=== PATIENT | male | born 1950 | race Caucasian/White ===

== ENCOUNTER → 2017-09-10 | Outpatient (CLI) | payer MEDICARE ==
[~2017-09-10] MED LIST: ACET325 PO; ALBU90OI61 INH; ASPI325 PO; ASPI81EC; ATEN25 PO; AZIT250 PO; Amiodarone HCl200 MG PO; BUDE6HFA INH; CARV6.25 PO; CHOL10002 PO; CLOP75 PO; CYCL10 PO; ELIQUIS5 MG PO; ESBRIET267 MG PO; GABA300 PO; GUAI600T33 PO; HYDCHL12.5 PO; HYSINGLA ER80 MG PO; Isosorbide Dini30 MG PO; LEVO750 PO; LISI20 PO; LIVALO2 MG PO; NAPR550 PO; NITR.4SL INH; NITR.4SL SL; NITROQUICK INH; Norco 10-325 T1 EACH PO; Norco 5-325 Ta1 EACH PO; OXYACE5T PO; OXYACE7.5T; OXYC5 PO; OXYGEN; PRAV20 PO; Pepcid20 MG PO; Pravastatin Sod40 MG PO; ROSU10TA PO; RXCYCL10 PO; RXNAPNA550 PO; Ventolin/Prove6.7 GM INH; ZOHYDRO ER10 M1 PO; [UNRECOGNIZED DRUG - REMARK]
[2017-09-10 15:02] LABS: Anion Gap 8 mmol/L (6-16); Blood Urea Nitrogen 24 mg/dL (8-24); CO2, Blood 18 mmol/L (21-32); Calcium, Blood 8.7 mg/dL (8.5-10.1); Chloride, Blood 109 mmol/L (98-108); Glomerular Filtration Rate >60 (60-); Glucose, Blood 128 mg/dL (70-99); Potassium, Blood 4.5 mmol/L (3.5-5.5); Sodium, Blood 135 mmol/L (136-145)
== END | disposition home or self-care (01) ==
LOC: LAB SHORT 10:15
PROVIDERS: Family Medicine
DX: I25.10 Atherosclerotic heart disease of native coronary artery without angina pectoris (principal); J44.9 Chronic obstructive pulmonary disease, unspecified; R06.02 Shortness of breath; Z95.1 Presence of aortocoronary bypass graft
CPT/HCPCS: 80048

== ENCOUNTER 2017-09-25 09:24 | Day surgery (SDC) | payer MEDICARE | END 2017-09-25 22:49 | disposition home or self-care (01) | LOC: ORSCMMR 09:24 → ORD 09:24 → CT 09:24 → ORSCMMR 09:25 → ORD 09:30 → CT 10:00 → ORSCMMR 22:49 → ORD 22:49 | DX: I25.10 Atherosclerotic heart disease of native coronary artery without angina pectoris (principal); I51.7 Cardiomegaly; I25.84 Coronary atherosclerosis due to calcified coronary lesion; J84.112 Idiopathic pulmonary fibrosis; R06.02 Shortness of breath; Z95.1 Presence of aortocoronary bypass graft; F17.210 Nicotine dependence, cigarettes, uncomplicated; E78.5 Hyperlipidemia, unspecified; I25.2 Old myocardial infarction | CPT/HCPCS: 75574; Q9967 ==

== ENCOUNTER 2017-12-12 15:20 | Emergency (ER) | payer MEDICARE ==
[~2017-12-12] VITALS: Ht 180.3 cm; Wt 104.3 kg
[2017-12-12 16:03] LABS: BASOPHILS ABSOLUTE AUTO 0.07 K/mm3 (0.00-0.23); BASOPHILS PERCENT AUTO 1 % (0-2); EOSINOPHILS ABSOLUTE AUTO 0.18 K/mm3 (0.00-0.68); EOSINOPHILS PERCENT AUTO 2 % (0-6); Hematocrit 44.6 % (37.0-53.0); Hemoglobin 14.6 g/dL (13.5-17.5); IMMATURE GRAN PERCENT AUTO 1 % (0-1); LYMPHOCYTES ABSOLUTE AUTO 1.58 K/mm3 (0.84-5.20); LYMPHOCYTES PERCENT AUTO 14 % (21-46); MONOCYTES ABSOLUTE AUTO 0.93 K/mm3 (0.16-1.47); MONOCYTES PERCENT AUTO 8 % (4-13); Mean Corpuscular HGB 30.2 pg (26.0-34.0); Mean Corpuscular HGB Conc 32.7 g/dL (31.5-36.5); Mean Corpuscular Volume 92 fL (80-100); Mean Platelet Volume 11.7 fL (9.1-12.4); NEUTROPHILS ABSOLUTE AUTO 8.66 K/mm3 (1.96-9.15); NEUTROPHILS PERCENT AUTO 75 % (41-73); Platelet Count 191 K/mm3 (150-400); RDW Coefficient Variation 13.1 % (11.7-14.2); RDW Standard Deviation 44.5 fL (35.1-46.3); Red Blood Cell Count 4.83 M/mm3 (4.30-5.90); White Blood Cell Count 11.52 K/mm3 (4.00-11.30)
[2017-12-12 16:15] LABS: International Normalized Ratio 1.11; Prothrombin Time Results 11.4 Sec (9.7-11.5)
[2017-12-12 16:38] LABS: Alanine Aminotransfer (ALT/SGP 58 U/L (12-78); Albumin, Blood 3.9 g/dL (3.4-5.0); Alk Phos 60 U/L (50-136); Anion Gap 12 mmol/L (6-16); Aspartate Aminotrans (AST/SGOT 63 U/L (12-37); Bilirubin, Total 0.8 mg/dL (0.1-1.0); Blood Urea Nitrogen 25 mg/dL (8-24); Bun/Creatinine Ratio 22.7 (12.0-20.0); CO2, Blood 20 mmol/L (21-32); Chloride, Blood 106 mmol/L (98-108); Globulin, Blood 4.1 g/dL (2.2-4.0); Glomerular Filtration Rate >60 (60-); Glucose, Blood 124 mg/dL (70-99); Potassium, Blood 4.4 mmol/L (3.5-5.5); Sodium, Blood 138 mmol/L (136-145); Troponin I <0.015 ng/mL (0.000-0.040)
== END 2017-12-12 17:41 | disposition home or self-care (01) ==
LOC: ER 15:20
PROVIDERS: Emergency Medicine
DX: S40.011A Contusion of right shoulder, initial encounter (principal); J44.9 Chronic obstructive pulmonary disease, unspecified; J84.10 Pulmonary fibrosis, unspecified; Z87.891 Personal history of nicotine dependence; Z91.048 Other nonmedicinal substance allergy status; Z88.8 Allergy status to other drugs, medicaments and biological substances; Z79.899 Other long term (current) drug therapy; W18.30XA Fall on same level, unspecified, initial encounter
CPT/HCPCS: 71046; 80053; 83880; 84484; 85025; 85610; 85730; 93005; 93010; 99284

== ENCOUNTER 2019-01-25 12:46 | Observation (INO) | payer MEDICARE ==
[~2019-01-25] VITALS: Ht 180.3 cm; Wt 95.2 kg
[2019-01-25 13:17] LABS: BASOPHILS ABSOLUTE AUTO 0.08 K/mm3 (0.00-0.23); BASOPHILS PERCENT AUTO 1 % (0-2); EOSINOPHILS PERCENT AUTO 3 % (0-6); Hematocrit 45.1 % (37.0-53.0); Hemoglobin 14.6 g/dL (13.5-17.5); IMMATURE GRAN ABSOLUTE AUTO 0.02 K/mm3 (0.00-0.10); IMMATURE GRAN PERCENT AUTO 0 % (0-1); LYMPHOCYTES ABSOLUTE AUTO 2.06 K/mm3 (0.84-5.20); LYMPHOCYTES PERCENT AUTO 26 % (21-46); MONOCYTES ABSOLUTE AUTO 0.84 K/mm3 (0.16-1.47); MONOCYTES PERCENT AUTO 11 % (4-13); Mean Corpuscular HGB 32.1 pg (26.0-34.0); Mean Corpuscular HGB Conc 32.4 g/dL (31.5-36.5); Mean Corpuscular Volume 99 fL (80-100); Mean Platelet Volume 11.5 fL (9.1-12.4); NEUTROPHILS ABSOLUTE AUTO 4.65 K/mm3 (1.96-9.15); NEUTROPHILS PERCENT AUTO 59 % (41-73); Platelet Count 193 K/mm3 (150-400); RDW Coefficient Variation 13.4 % (11.7-14.2); RDW Standard Deviation 48.8 fL (35.1-46.3); Red Blood Cell Count 4.55 M/mm3 (4.30-5.90); White Blood Cell Count 7.85 K/mm3 (4.00-11.30)
[2019-01-25 13:33] LABS: Alanine Aminotransfer (ALT/SGP 35 U/L (12-78); Albumin, Blood 3.4 g/dL (3.4-5.0); Albumin/Globulin Ratio 0.8 (0.8-1.8); Alk Phos 46 U/L (50-136); Anion Gap 7 mmol/L (6-16); Aspartate Aminotrans (AST/SGOT 27 U/L (12-37); Bilirubin, Total 0.8 mg/dL (0.1-1.0); Blood Urea Nitrogen 25 mg/dL (8-24); Bun/Creatinine Ratio 16.7 (12.0-20.0); CO2, Blood 23 mmol/L (21-32); Calcium, Blood 8.9 mg/dL (8.5-10.1); Chloride, Blood 108 mmol/L (98-108); Globulin, Blood 4.1 g/dL (2.2-4.0); Glomerular Filtration Rate 49 (60-); Glucose, Blood 145 mg/dL (70-99); Potassium, Blood 4.5 mmol/L (3.5-5.5); Sodium, Blood 138 mmol/L (136-145); Total Protein, Blood 7.5 g/dL (6.4-8.2); Troponin I <0.015 ng/mL (0.000-0.040)
[2019-01-25] MEDS ORDERED: Zyloprim100 MG PO (13:35)
[2019-01-25] MEDS ORDERED: OFEV150 MG PO (13:36)
[2019-01-25] MEDS ORDERED: LISI20 PO (13:37)
[2019-01-25] MEDS ORDERED: Aspirin EC81 MG PO (13:38)
--- NOTE | 2019-01-25 23:03 | NUR ---
Physician correspondence ~[id number] Spoke to on-call to ask if they would like for patient to continue with the Coreg tonight. On-call stated he needs to take it.
[2019-01-26 01:10] LABS: Source, Urine Clean Catch
[2019-01-26 01:12] LABS: Bilirubin, Urine Neg (Neg); Blood, Urine Neg (Neg); Glucose Qualitative, Urine Neg (Neg); Ketones, Urine Neg (Neg); Leukocyte Esterase, Urine Neg (Neg); Nitrite, Urine Neg (Neg); Protein, Urine Neg (Neg); Urobilinogen, Urine NORM (Normal)
[2019-01-26 01:13] LABS: Appearance, Urine Clear (Clear); Color, Urine Yellow (P-Yellow)
[2019-01-26 01:22] LABS: Anion Gap 6 mmol/L (6-16); Blood Urea Nitrogen 28 mg/dL (8-24); CHOL/HDL RATIO 4.3; CO2, Blood 24 mmol/L (21-32); Calcium, Blood 8.4 mg/dL (8.5-10.1); Chloride, Blood 110 mmol/L (98-108); Cholesterol 149 mg/dL (50-200); Creatinine, Blood 1.22 mg/dL (0.60-1.20); Glomerular Filtration Rate >60 (60-); Glucose, Blood 135 mg/dL (70-99); HDL Cholesterol 35 mg/dL (>39); LDL/HDL RATIO 1.7; Low Density Lipoprotein Chol 61 mg/dL (0-110); Potassium, Blood 4.1 mmol/L (3.5-5.5); Sodium, Blood 140 mmol/L (136-145); Triglycerides 264 mg/dL (30-160); Very Low Density Lipoprot Chol 52 mg/dL (6-32)
--- NOTE | 2019-01-26 06:42 | NUR ---
SHIFT SUMMARY A/O, ABLE TO MAKE NEEDS KNOWN. COOPERATIVE WITH CARE. CALLS AND ANSWERS QUESTIONS APPROPRIATELY. NO C/O PAIN/DISCOMFORT; NO REPORT OF CHEST PAIN. INDPENDENT IN ROOM. DAUGHTER AT BEDSIDE. ON 3-4L NC @ BASELINE. NO ACUTE CHANGES OVERNIGHT. IV INFUSING WITH MINIMAL ISSUES. BED IN LOWEST POSITION. CALL LIGHT IN REACH. WCTM. REPORT TO ONCOMING RN.
--- NOTE | 2019-01-26 12:02 | NUR ---
REVIEW D'C. NO CHANGES IN MEDS. AWARE HAS F/U APPT WITH PCP. ANSWER ALL QUESTIONS. PERSON TAKING PATIENT HOME DOES NOT HAVE OXYGEN IN CAR FOR PATIENT W/PATIENT STATING HE DOES NOT NEED IT. REFUSES OXYGEN FOR W/C RIDE DOWN TO CAR.AWARE CAN RETURN TO E.R IF ANY PROBLEMS.
== END 2019-01-26 12:45 | disposition home or self-care (01) ==
LOC: ER 12:46 → MEDS 17:28
PROVIDERS: Emergency Medicine; Nurse Practitioner Acute Care; ADMIT Internal Medicine
DX: R07.89 Other chest pain (principal); N17.9 Acute kidney failure, unspecified; I27.20 Pulmonary hypertension, unspecified; J84.112 Idiopathic pulmonary fibrosis; G92 Toxic encephalopathy; I25.10 Atherosclerotic heart disease of native coronary artery without angina pectoris; J96.11 Chronic respiratory failure with hypoxia; I10 Essential (primary) hypertension; I25.2 Old myocardial infarction; E78.5 Hyperlipidemia, unspecified; Z99.81 Dependence on supplemental oxygen; Z87.891 Personal history of nicotine dependence; Z91.048 Other nonmedicinal substance allergy status; Z88.6 Allergy status to analgesic agent; Z79.899 Other long term (current) drug therapy; Z79.82 Long term (current) use of aspirin
CPT/HCPCS: 36415; 71046; 80048; 80053; 80061; 81003; 83880; 84484; 85025; 93005; 93010; 96360; 96361; 99285-25; G0378; J7120